=== PATIENT | male | born 1985 | race Caucasian/White ===

== ENCOUNTER → 2024-08-03 08:40 | Outpatient (CLI) | payer BC, SELFPAY ==
[2024-08-03 09:45] LABS: Alanine Aminotransferase 17 IU/L (<50); Albumin 4.9 g/dL (3.5-5.0); Albumin Globulin Ratio 1.5 (1.0-2.8); Alkaline Phosphatase 91 U/L (38-126); Aspartate Aminotransferase 31 IU/L (17-59); BUN Creatinine Ratio 28.6 (6-22); Bilirubin Total 0.6 mg/dL (0.2-1.3); Blood Urea Nitrogen 22 mg/dL (9-20); Calcium 10.4 mg/dL (8.4-10.2); Carbon Dioxide 29 mmol/L (22-32); Chloride 102 mmol/L (98-107); Cholesterol 188 mg/dL (140-199); Estimated Glomerular Filt Rate > 60 mL/min (>60); Globulin 3.2 g/dL (1.7-4.1); Glucose 85 mg/dL (70-99); HDL Cholesterol 41 mg/dL (40-60); HEMOLYSIS < 15 (0-50); LDL Cholesterol Calculated 126 mg/dL (<100); Potassium 4.6 mmol/L (3.4-5.1); Sodium 141 mmol/L (137-145); Total Protein 8.1 g/dL (6.3-8.2); Triglycerides 103 mg/dL (35-150)
[2024-08-05 12:36] LABS: HSV 1 DNA Negative (Negative); HSV 2 DNA Negative (Negative)
== END ==
PROVIDERS: PCP Family Medicine; Referring Provider Family Medicine; Visit Provider Family Medicine
DX: Z11.3 Encounter for screening for infections with a predominantly sexual mode of transmission (principal); Z00.00 Encounter for general adult medical examination without abnormal findings; Z13.220 Encounter for screening for lipoid disorders; Q23.81 Bicuspid aortic valve; Z68.28 Body mass index [BMI] 28.0-28.9, adult; Z76.89 Persons encountering health services in other specified circumstances
CPT/HCPCS: 36415; 80053; 80061; 87529

== ENCOUNTER → 2024-08-08 08:02 | Outpatient (CLI) | payer BC, SELFPAY ==
--- NOTE | 2024-08-08 08:22 | DI.ECHO.S_ITS ---
[facility] : : [id number] : : [place] : : [id number] : : Phone: [phone] Echocardiogram Report + + :Name: MATHEUS HODGES JR Piter Study Date: 08/08/2024 Height: 74 in : :[facility] ReadingLocation: Weight: 220 lb : : Gender: Male BSA: 2.3 m2 : :: 1985 Age: 39 yrs BP: 147/80 mmHg: :Reason For Study: Aortic, Biscupid Valve : :Ordering Physician: LOCO, : :PATRICK Performed By: Mercedes Dominguez : :Referring: PATRICK ADAN : + + Interpretation Summary 1) Borderliner enlarged left ventricle with normal wall motion and systolic function (EF 55-60%). 2) Mildly enlarged right ventricle with normal function. 3) The aortic valve is bicuspid. There is trace aortic regurgitation. 4) The aortic root is borderline dilated at 4.1cm. 5) Compared to the Echo done 07/13/2018, mild right ventricular enlargement and borderline aortic root enlargement are present on this study. Procedure: A two-dimensional transthoracic echocardiogram with color flow and Doppler was performed. The study quality was technically adequate. Comparison is made with the echocardiogram of 2019. The heart rate ranged between 59-62 bpm during the study. Left Ventricle: The left ventricle is borderline dilated. There is normal left ventricular wall thickness. The ejection fraction is estimated to be 55- 60%. Diastolic parameters suggest probable normal left ventricular diastolic function and normal filling pressures. Right Ventricle: The right ventricle is mildly dilated. The right ventricular systolic function is normal. Atria: The left atrial size is normal. Right atrial size is normal. The interatrial septum grossly appears intact with no obvious evidence for an atrial septal defect. Mitral Valve: The mitral valve is grossly normal. There is trace mitral regurgitation. Aortic Valve: The aortic valve is bicuspid. The aortic valve opens well. The aortic valve area is 6.3 centimeters squared by planimetry. The calculated aortic valve area is 3.1 cm2. The peak aortic velocity is 1.4 m/sec. The aortic valve mean gradient is 4.2 mmHg. There is no aortic valve stenosis. There is trace aortic regurgitation. Tricuspid Valve: The tricuspid valve is normal in structure and function. There is a trace or physiologic amount of tricuspid regurgitation. Pulmonic Valve: The pulmonic valve is not well seen, but is grossly normal. There is no pulmonic valvular regurgitation. Great Vessels: The aortic root is borderline dilated. The ascending aorta is normal in size. The aortic arch is normal in size. The IVC is of normal diameter and collapses greater than 50% with a sniff. This suggests a low right atrial pressure of 3 mm Hg. Pericardium/ Pleura There is no pericardial effusion. There is no pleural effusion. MMode/2D Measurements & Calculations LVIDd: 5.8 cm LVOT diam: 2.3 cm LVIDs: 3.6 cm Ao root diam: 4.1 cm FS: 37.3 % asc Aorta Diam: 3.3 cm EPSS: 0.60 cm Ao Arch Diam (Prox Trans): 2.6 cm IVSd: 1.1 cm LVPWd: 1.0 cm LV trivedi. diameter/BSA (cm/m^2): 2.6 LV sys. diameter/BSA (cm/m^2): 1.6 LA A2 area: 23.8 cm2 RA long axis: 5.5 cm LA A4 area: 17.8 cm2 RA area: 17.0 cm2 LA length (vol): 5.0 cm RA vol: 45.0 ml LA vol: 71.8 ml RA : 19.9 ml/m2 LA vol index: 31.7 ml/m2 IVC diam: 2.1 cm RVD1 (basal): 3.2 cm TAPSE: 2.8 cm Doppler Measurements & Calculations Ao V2 max: 139.2 cm/sec LVOT Max David: 89.8 cm/sec Ao V2 mean: 96.7 cm/sec LV V1 max P.2 mmHg Ao max P.7 mmHg LV V1 VTI: 23.3 cm Ao mean P.2 mmHg TITUS(I,D): 3.1 cm2 Ao V2 VTI: 30.6 cm TITUS(V,D): 2.7 cm2 sev ratio: 0.76 TITUS indexed to BSA (cm^2/m^2): 1.4 MV E max david: 67.8 cm/sec PA V2 max: 68.9 cm/sec MV A max david: 65.6 cm/sec PA V2 mean: 43.9 cm/sec MV E/A: 1.0 PA mean P.90 mmHg Med Peak E' David: 10.2 cm/sec PA pr(Accel): 8.8 mmHg E/E' med: 6.7 Lat Peak E' David: 13.2 cm/sec E/E' lat: 5.1 E/e' average: 5.9 MV dec time: 0.20 sec SV(LVOT): 96.0 ml Reading Physician:12:56 PM
== END ==
LOC: ECHO 08:03
PROVIDERS: PCP Family Medicine; Referring Provider Family Medicine; Visit Provider Family Medicine
DX: Q23.81 Bicuspid aortic valve (principal)
CPT/HCPCS: 93306

== ENCOUNTER → 2025-02-02 11:10 | Outpatient (CLI) | payer BC, SELFPAY | PROVIDERS: PCP Family Medicine; Referring Provider Family Medicine; Visit Provider Family Medicine | DX: Z11.3 Encounter for screening for infections with a predominantly sexual mode of transmission (principal); Z20.828 Contact with and (suspected) exposure to other viral communicable diseases | CPT/HCPCS: 36415; 86695; 87529 ==